=== PATIENT | female | born 1990 | race Asian ===

== ENCOUNTER 2017-05-23 00:05 | Inpatient (IN) | payer SELFPAY ==
[~2017-05-23] VITALS: Ht 162 cm; Wt 63.0 kg
[2017-05-23] MEDS ORDERED: LACTATED RINGERS 1,000 ML IV SCH (01:28)
[2017-05-23] MEDS ORDERED: MISOPROSTOL 25 MCG TAB VG PRN (01:30)
[2017-05-23] MEDS ORDERED: NALBUPHINE HYDROCHLORIDE 10 MG/ML VIAL IVP PRN (01:30)
[2017-05-23] MEDS ORDERED: METHYLERGONOVINE 0.2 MG/ML AMP IM PRN (01:30)
[2017-05-23] MEDS ORDERED: CARBOPROST 250 MCG/ML AMP IM PRN (01:30)
[2017-05-23] MEDS ORDERED: OXYTOCIN 10 UNITS/ML VIAL IM SCH (01:30)
[2017-05-23] MEDS ORDERED: PROMETHAZINE 25 MG/ML VIAL IVP PRN (01:30)
[2017-05-23 02:16] LABS: BASOPHILS # (AUTO) 0.1 K/uL (0.00-0.22); EOSINOPHILS % (AUTO) 0.9 % (0.0-4.0); HEMOGLOBIN 12.1 g/dL (12.0-16.0); LYMPHOCYTES # (AUTO) 1.9 K/uL (2.5-16.5); LYMPHOCYTES % (AUTO) 33.5 % (20.5-51.1); MEAN CORPUSCULAR HEMOGLOBIN 32 pg (27-31); MEAN CORPUSCULAR HGB CONC 34 g/dL (33-37); MEAN CORPUSCULAR VOLUME 94 fL (80-94); MONOCYTES # (AUTO) 0.4 K/uL (0.8-1.0); MONOCYTES % (AUTO) 7.7 % (1.7-9.3); NEUTROPHILS # (AUTO) 3.2 K/uL (1.8-7.7); NEUTROPHILS % (AUTO) 56.9 % (42.2-75.2); PLATELET COUNT (AUTO) 115 K/uL (140-450); RED BLOOD CELL COUNT(AUTO) 3.81 MIL/uL (4.20-5.40); RED CELL DISTRIBUTION WIDTH 19.7 % (11.6-13.7); WHITE BLOOD COUNT (AUTO) 5.6 K/uL (4.8-10.8)
[2017-05-23 02:27] LABS: CARBON DIOXIDE 21.6 mmol/L (21-32); CREATININE 0.6 mg/dL (0.6-1.3); POTASSIUM 3.6 mmol/L (3.5-5.1)
[2017-05-23 02:33] LABS: ALBUMIN 2.7 g/dL (3.4-5.0); TOTAL BILIRUBIN 0.3 mg/dL (0.0-1.0)
[2017-05-23] MEDS ORDERED: MISOPROSTOL 25 MCG TAB ONE (02:46)
[2017-05-23] MEDS ORDERED: FERR325E14 PO (03:17)
[2017-05-23] MEDS ORDERED: PREN-546 PO (03:17)
[2017-05-23 03:21] VITALS: BP 111/64
[2017-05-23] MEDS ORDERED: OXYTOCIN 20 UNITS in LACTATED RINGERS 1,000 ML IV SCH (04:00)
[2017-05-23] MEDS ORDERED: PROMETHAZINE 25 MG/ML VIAL ONE (05:27)
[2017-05-23] MEDS ORDERED: NALBUPHINE HYDROCHLORIDE 10 MG/ML VIAL ONE (05:27)
[2017-05-23] MEDS ORDERED: ROPIVACAINE 0.2%/NS PREMIX 250 ML EPI ONE (07:40)
[2017-05-23] MEDS ORDERED: OXYTOCIN 20 UNITS/LR PREMIX 1,000 ML IV ONE (10:01)
[2017-05-23] MEDS ORDERED: OXYTOCIN 10 UNITS/ML VIAL ONE (12:31)
[2017-05-23] MEDS ORDERED: oxyCODONE/APAP 5/325 MG 1 TAB TAB PO PRN (19:05)
[2017-05-23] MEDS ORDERED: SODIUM PHOSPHATE 118 ML ENEM RC PRN (19:05)
[2017-05-23] MEDS ORDERED: HYDROcodone/APAP 5/325 MG 1 TAB TAB PO PRN (19:05)
[2017-05-23] MEDS ORDERED: IBUPROFEN 400 MG TAB ONE (19:19)
[2017-05-23] MEDS ORDERED: DOCUSATE SOD/SENNA 50/8.6 MG 1 TAB PO SCH (21:00)
[2017-05-23] MEDS: IBUPROFEN 800 MG TAB PO PRN (21:50)
[2017-05-24 06:20] LABS: HEMATOCRIT 32.8 % (36-48); HEMOGLOBIN 10.7 g/dL (12.0-16.0)
[2017-05-24] MEDS: IBUPROFEN 800 MG TAB PO PRN ×2 (10:00→21:27)
== END 2017-05-25 13:20 | disposition home or self-care (01) | DRG 775 ==
LOC: MLD 00:05 → MFCC 16:15
PROVIDERS: ADMIT Obstetrics & Gynecology; ATTEND Obstetrics & Gynecology
PROC: 10D07Z6 Extraction of Products of Conception, Vacuum, Via Natural or Artificial Opening (ICD-10-PCS; principal; 2017-05-23)
PROC: 3E0P7VZ Introduction of Hormone into Female Reproductive, Via Natural or Artificial Opening (ICD-10-PCS; 2017-05-23)
PROC: 0W8NXZZ Division of Female Perineum, External Approach (ICD-10-PCS; 2017-05-23)
PROC: 00HU33Z Insertion of Infusion Device into Spinal Canal, Percutaneous Approach (ICD-10-PCS; 2017-05-23)
PROC: 3E0R3BZ Introduction of Anesthetic Agent into Spinal Canal, Percutaneous Approach (ICD-10-PCS; 2017-05-23)
DX: O80 Encounter for full-term uncomplicated delivery (principal); Z28.21 Immunization not carried out because of patient refusal; Z37.0 Single live birth; Z3A.39 39 weeks gestation of pregnancy
CPT/HCPCS: 36415; 51702; 59200; 59409; 80053; 85018; 85025; 86592; 86886; 86900; 86901; J2300; J2550; J2590; J2795; J7120